=== PATIENT | female | born 1990 | race Caucasian/White ===

== ENCOUNTER → 2017-10-16 | Outpatient (CLI) | payer BC ==
[2017-10-16 11:38] LABS: FREE T4 0.9 ng/dL (0.76-1.46)
[2017-10-16 22:17] LABS: ESTRADIOL LEVEL 85.4 pg/mL (.); FSH 5.1 mIU/mL (.); PROGESTERONE 11.4 ng/mL (.); PROLACTIN 8.7 ng/mL (4.8-23.3)
[2017-10-21 07:57] LABS: ANTITHROMBIN III SEE SEPARATE REPORT
== END | disposition home or self-care (01) ==
LOC: LAB 10:42
PROVIDERS: ATTEND Obstetrics & Gynecology
DX: O26.20 Pregnancy care for patient with recurrent pregnancy loss, unspecified trimester (principal); N93.8 Other specified abnormal uterine and vaginal bleeding; Z3A.00 Weeks of gestation of pregnancy not specified
CPT/HCPCS: 82627; 82670; 83001; 84144; 84146; 84439; 84443; 86038; 86787

== ENCOUNTER → 2017-12-30 | Outpatient (CLI) | payer OTHER ==
[2017-12-30 17:02] LABS: ADD MAN DIFF? NO
[2017-12-30 17:09] LABS: BASO % 0 % (0-3); EOS % 1 % (0-3); HEMATOCRIT 40.3 % (36.0-47.0); HEMOGLOBIN 13.9 g/dL (12.0-15.5); LYMPH # 1.9 x10^3/uL (1.0-4.8); LYMPH % 21 % (24-48); MEAN CORPUSCULAR HEMOGLOBIN 32 pg (25-35); MEAN CORPUSCULAR HGB CONC 35 g/dL (31-37); MEAN CORPUSCULAR VOLUME 92 fL (79-100); MONO # 0.7 x10^3/uL (0.0-1.1); MONO % 8 % (0-9); NEUT # 6.1 x10^3uL (1.8-7.7); NEUT % 69 % (31-73); PLATELET COUNT 197 x10^3/uL (140-400); RED BLOOD COUNT 4.37 x10^6/uL (3.50-5.40); RED CELL DISTRIBUTION WIDTH 12.6 % (11.5-14.5); WHITE BLOOD COUNT 8.8 x10^3/uL (4.0-11.0)
[2017-12-31 01:14] LABS: HEP B SURFACE AG Negative (Negative)
[2017-12-31 06:19] LABS: RPR Non Reactive (Non Reactive)
[2017-12-31 07:32] LABS: HIV ANTIBODY Non Reactive (Non Reactive)
[2017-12-31 12:22] LABS: RUBELLA IGG ANTIBODY 2.88 index (Immune >0.99)
== END | disposition home or self-care (01) ==
LOC: LAB 16:42
DX: Z32.01 Encounter for pregnancy test, result positive (principal); R79.89 Other specified abnormal findings of blood chemistry
CPT/HCPCS: 36415; 85025; 86593; 86703; 86762; 86850; 86900; 86901; 87340

== ENCOUNTER → 2018-04-09 | Outpatient (CLI) | payer OTHER ==
[2018-04-09 09:47] LABS: ADD MAN DIFF? NO
[2018-04-09 09:51] LABS: BASO % 0 % (0-3); EOS % 0 % (0-3); HEMOGLOBIN 13.3 g/dL (12.0-15.5); LYMPH # 1.8 x10^3/uL (1.0-4.8); LYMPH % 17 % (24-48); MEAN CORPUSCULAR HEMOGLOBIN 33 pg (25-35); MEAN CORPUSCULAR HGB CONC 35 g/dL (31-37); MEAN CORPUSCULAR VOLUME 94 fL (79-100); MONO # 0.7 x10^3/uL (0.0-1.1); MONO % 7 % (0-9); NEUT # 7.9 x10^3uL (1.8-7.7); NEUT % 76 % (31-73); PLATELET COUNT 189 x10^3/uL (140-400); RED BLOOD COUNT 4.04 x10^6/uL (3.50-5.40); RED CELL DISTRIBUTION WIDTH 13.1 % (11.5-14.5); WHITE BLOOD COUNT 10.5 x10^3/uL (4.0-11.0)
[2018-04-09 10:09] LABS: GLUCOSE 73 mg/dL (70-99)
[2018-04-09 10:46] LABS: TYPE AND SCREEN 1 1
== END | disposition home or self-care (01) ==
LOC: LAB 09:24
DX: O09.92 Supervision of high risk pregnancy, unspecified, second trimester (principal); Z3A.24 24 weeks gestation of pregnancy
CPT/HCPCS: 36415; 82947; 82950; 85025; 86850; 86900; 86901; 96372; J2791

== ENCOUNTER 2018-07-24 19:08 | Inpatient (IN) | payer OTHER ==
[~2018-07-24] VITALS: Ht 161.3 cm; Wt 81.6 kg
[2018-07-24] MEDS ORDERED: OXYTOCIN 30 UNIT/500 ML PREMIX 500 ML IV PRN ×2 (19:15)
[2018-07-24] MEDS ORDERED: IBUPROFEN 800 MG TABLET. PO PRN (19:15)
[2018-07-24] MEDS ORDERED: MAG HYDROX/ALUMINUM HYD/SIMETH 30 ML ORAL.SUSP PO PRN (19:15)
[2018-07-24] MEDS ORDERED: fentaNYL PF VIAL 100 MCG/2 ML VIAL IV PRN (19:15)
[2018-07-24] MEDS ORDERED: ONDANSETRON PF 4 MG/2 ML VIAL. IV PRN (19:15)
[2018-07-24] MEDS ORDERED: DINOPROSTONE 10 MG SUPP.VAG VG ONE (19:15)
[2018-07-24] MEDS ORDERED: LIDOCAINE 1% PF 30 ML VIAL. INJ PRN (19:15)
[2018-07-24] MEDS ORDERED: TERBUTALINE 1 MG/ML VIAL. SQ PRN (19:15)
[2018-07-24] MEDS ORDERED: 0.9 % SODIUM CHLORIDE 10 ML DISP.SYRIN. IV PRN (19:15)
[2018-07-24] MEDS ORDERED: BUTORPHANOL 2 MG/ML VIAL. IV PRN (19:15)
[2018-07-24] MEDS ORDERED: ACETAMINOPHEN 325 MG TABLET. PO PRN (19:15)
[2018-07-24] MEDS: IV RINGERS,LACTATED 1000ML 1,000 ML IV SCH (20:37)
[2018-07-24 20:59] LABS: BASO % 0 % (0-3); EOS % 0 % (0-3); HEMATOCRIT 36.7 % (36.0-47.0); LYMPH # 1.5 x10^3/uL (1.0-4.8); LYMPH % 13 % (24-48); MEAN CORPUSCULAR HEMOGLOBIN 33 pg (25-35); MEAN CORPUSCULAR HGB CONC 35 g/dL (31-37); MEAN CORPUSCULAR VOLUME 94 fL (79-100); MONO # 0.8 x10^3/uL (0.0-1.1); MONO % 8 % (0-9); NEUT # 8.8 x10^3uL (1.8-7.7); NEUT % 79 % (31-73); PLATELET COUNT 159 x10^3/uL (140-400); RED BLOOD COUNT 3.91 x10^6/uL (3.50-5.40); RED CELL DISTRIBUTION WIDTH 12.8 % (11.5-14.5); WHITE BLOOD COUNT 11.1 x10^3/uL (4.0-11.0)
[2018-07-24 21:21] VITALS: BP 120/66
--- NOTE | 2018-07-25 08:28 | PDOC1 ---
OB - History Hx of Present Care: None Ultrasounds: Normal mid trimester US Obstetrical Complications: Other (oligohydramnios) Medical Complications: None Past Family/Social History * Past Medical, Surgical, Family and Obstetric Histories reviewed from chart. Rubella: Immune RPR/VDRL: Negative GBS Status: Negative HBsAG: Negative OB - Chief Complaint & HPI Date of Admission: Date of Admission: Jul 24, 2018 at 19:08 Chief Complaint/History : 1 Para: 0 EGA: 40 Reason for admission: induction of labor (oligohydramnios) Admission Nurse Assessment Rev: Yes OB - Admission Exam Physical Exam Vitals: VS - Last 72 Hours, by Label Date Time Temp Pulse Resp B/P (MAP) Pulse Ox O2 Delivery O2 Flow Rate FiO2 07/24/18 21:21 99.0 88 20 120/66 (84) 96 Room Air 99.0 HEENT: Normal Heart: Regular Rate Lungs: Clear Abdomen: Gravid, Non tender, Soft Extremities: Edema Reflexes: Normal Cervical Dilatation: 2cm Effacement: 75% Station: -3 Membranes: Intact Heart Rate: Normal Accelerations: Accelerations Present Decelerations: No decelerations Contractions on Admission: None Text A: 40 wks IUP Oligohydramnios P: Admit for cervidil IOL. FRANCY MAHONEY Jr, MD Jul 25, 2018 08:28
[2018-07-25] MEDS: IV RINGERS,LACTATED 1000ML 1,000 ML IV SCH ×3 (12:42→21:30)
[2018-07-25] MEDS ORDERED: L&D EPIDURAL SYRINGE 50 ML EP ONE (15:42)
[2018-07-25] MEDS ORDERED: ROPIVacaine 0.2% PF 10 ML VIAL. ONE ×2 (15:42→16:00)
[2018-07-25] MEDS ORDERED: ONDANSETRON PF 4 MG/2 ML VIAL. IV PRN ×3 (15:45→19:00)
[2018-07-25] MEDS ORDERED: ePHEDrine PF IN SALINE 50 MG/5 ML DISP.SYRIN IV PRN (15:45)
[2018-07-25] MEDS ORDERED: fentaNYL PF VIAL 100 MCG/2 ML VIAL EPI ONE (15:45)
[2018-07-25] MEDS ORDERED: NALOXONE 0.4 MG/ML VIAL. IV PRN ×2 (15:45→19:00)
[2018-07-25] MEDS ORDERED: L&D EPIDURAL SYRINGE 50 ML EP PRN (15:45)
[2018-07-25] MEDS ORDERED: CITRIC ACID/SODIUM CITRATE 30 ML SOLUTION. PO ONE (17:15)
[2018-07-25] MEDS ORDERED: MORPHINE PF 5 MG/10 ML VIAL. ONE (18:08)
[2018-07-25] MEDS ORDERED: CHLOROPROCAINE 3% MPF 20 ML VIAL. ONE (18:08)
--- NOTE | 2018-07-25 18:47 | PDOC4 ---
OB Operative Note Date: Jul 25, 2018 PRE OP DIAGNOSIS: NRFHT POST OP DIAGNOSIS: NRFHT OPERATION PERFORMED: [facility] Surgeon Dr. Ovalle Anesthesia: Regional (Epidural) Blood Loss 500 ml Specimen placenta and fetus OB Findings: Position (Vertex), Sex (Male), (), Weight (3365 Gram) Complications none Additional Remarks pt. FRANCY Carrillo Jr, MD Jul 25, 2018 18:47
[2018-07-25] MEDS ORDERED: diphenhydrAMINE 50 MG/ML VIAL IV PRN ×2 (19:00)
[2018-07-25] MEDS ORDERED: DOCUSATE SODIUM 100 MG CAPSULE. PO PRN (19:00)
[2018-07-25] MEDS ORDERED: ceFAZolin 2GM PREMIX 2 GM/50 ML BAG IV ONE (19:00)
[2018-07-25] MEDS ORDERED: OXYTOCIN 30 UNIT/500 ML PREMIX 500 ML IV PRN (19:00)
[2018-07-25] MEDS ORDERED: oxyCODONE/APAP 5/325 1 TAB TABLET PO PRN (19:00)
[2018-07-25] MEDS ORDERED: ATROPINE 0.5 MG/5 ML DISP.SYRINGE. IV PRN (19:00)
[2018-07-25] MEDS ORDERED: ZOLPIDEM 5 MG TABLET. PO PRN (19:00)
[2018-07-25] MEDS ORDERED: diphenhydrAMINE ORAL ELIXIR 12.5 MG/5 ML ML PO PRN (19:00)
[2018-07-25] MEDS ORDERED: NALBUPHINE 10 MG/ML AMPUL. IV PRN (19:00)
[2018-07-25] MEDS ORDERED: MEPERIDINE PF 25 MG/ML VIAL. IM PRN (19:00)
[2018-07-25] MEDS ORDERED: 0.9 % SODIUM CHLORIDE 10 ML DISP.SYRIN. IV PRN (19:00)
[2018-07-25] MEDS ORDERED: KETOROLAC 30 MG/ML VIAL. IV ONE (19:00)
[2018-07-25] MEDS ORDERED: PROCHLORPERAZINE 10 MG/2 ML VIAL. IV PRN (19:00)
[2018-07-25] MEDS ORDERED: SIMETHICONE 80 MG TAB.CHEW PO PRN (19:00)
[2018-07-25] MEDS ORDERED: KETOROLAC 30 MG/ML VIAL. IV PRN (19:00)
[2018-07-25] MEDS ORDERED: MAG HYDROX/ALUMINUM HYD/SIMETH 30 ML ORAL.SUSP PO PRN (19:00)
[2018-07-25] MEDS ORDERED: PHENYLEPHRINE in 0.9% NACL PF 1 MG/10 ML SYRINGE. IV ONE (19:04)
[2018-07-25] MEDS ORDERED: ONDANSETRON PF 4 MG/2 ML VIAL. ONE (19:13)
[2018-07-25] MEDS ORDERED: METOCLOPRAMIDE HCL 10 MG/2 ML VIAL. ONE (19:13)
[2018-07-25] MEDS ORDERED: FAMOTIDINE 20 MG/2 ML VIAL ONE (19:13)
--- NOTE | 2018-07-25 20:02 | OP ---
DATE OF SURGERY: PREOPERATIVE DIAGNOSES: 1. A 40 weeks' intrauterine . 2. Oligohydramnios. 3. intolerance to labor. POSTOPERATIVE DIAGNOSES: 1. A 40 weeks' intrauterine . 2. Oligohydramnios. 3. intolerance to labor. PROCEDURE: Primary low-transverse section. SURGEON: Francy Ovalle MD ANESTHESIA: Epidural. ESTIMATED BLOOD LOSS: 500 mL. COMPLICATIONS: None. FINDINGS: Viable male infant, Apgars 8, 8 and 9, weight 3365 grams. Three-vessel cord placenta delivered manually. SUMMARY: A 28-year-old 1 at 40 weeks was induced due to oligohydramnios. The patient dilated up to 4 cm and began having repetitive late decelerations and intolerance to labor. She was counseled on the need for emergent section and voiced clear understanding to proceed. DESCRIPTION OF PROCEDURE: The patient was taken to the surgery suite and placed in dorsal supine position. She was prepped with ChloraPrep and draped in sterile fashion. After adequate anesthesia, a Pfannenstiel skin incision was made with scalpel down to and through the fascia. The fascia was extended laterally using curved Turcios scissors. The superior edge of the fascia was grasped with two Flaco clamps and dissected free of the abdominal rectus muscles using blunt dissection along with Bovie cautery. The same process took place inferiorly. The abdominal rectus muscles were dissected bluntly at the midline. Peritoneum was grasped with 2 hemostats and entered sharply with Metzenbaum scissors. This incision was extended superiorly as well as inferiorly. Rajinder ring retractor was placed. Low-transverse hysterotomy incision made with scalpel down to the . The hysterotomy incision was extended laterally and superiorly digitally. With the aid of fundal pressure, the infant's head was delivered in a smooth atraumatic manner. With additional fundal pressure, the anterior shoulder was delivered followed by posterior shoulder and rest of the male was delivered. The infant was suctioned with bulb syringe orally and nasally, umbilical cord was clamped twice and cut. Viable male infant was handed to waiting nursing staff. Umbilical cord blood and arterial pH were obtained. Three-vessel cord placenta was delivered manually. The uterus was then exteriorized and cleared of clot and debris with moist lap. Hysterotomy incision was reapproximated using 1-0 Vicryl suture in running locked fashion. [id number] sutures were placed at the left apex of the hysterotomy incision for better hemostasis. The uterus palpated firm. Fallopian tubes, ovaries appeared normal bilaterally. The posterior cul-de-sac was cleared of clot and debris with moist lap. The uterus was then returned to the abdomen. The pericolic gutters were cleared of clot and debris with a moist lap. Hysterotomy incision was reviewed and was hemostatic. Interceed was placed over the hysterotomy incision in an inverted T fashion. The Rajinder ring retractor was removed. The peritoneum was reapproximated using 1-0 Vicryl suture in running fashion. Fascia was reapproximated using 0 Vicryl suture in running fashion. Skin was reapproximated using 4-0 Vicryl suture in subcuticular manner. The patient tolerated the procedure well and was taken to recovery room in stable condition. Sponge and needle count correct x 3. FRANCY OVALLE MD DR: BARAK/marco JOB#: [id number] / [id number]
[2018-07-25 21:15] VITALS: BP 95/56
[2018-07-25 21:45] VITALS: BP 88/44
[2018-07-25 23:03] VITALS: BP 88/42
[2018-07-26 03:00] VITALS: BP 97/53
[2018-07-26 04:40] LABS: BASO % 0 % (0-3); EOS % 0 % (0-3); HEMATOCRIT 31.8 % (36.0-47.0); HEMOGLOBIN 11.1 g/dL (12.0-15.5); LYMPH # 1.6 x10^3/uL (1.0-4.8); LYMPH % 10 % (24-48); MEAN CORPUSCULAR HEMOGLOBIN 33 pg (25-35); MEAN CORPUSCULAR HGB CONC 35 g/dL (31-37); MEAN CORPUSCULAR VOLUME 95 fL (79-100); MONO # 1.5 x10^3/uL (0.0-1.1); MONO % 10 % (0-9); NEUT # 12.4 x10^3uL (1.8-7.7); NEUT % 80 % (31-73); PLATELET COUNT 119 x10^3/uL (140-400); RED BLOOD COUNT 3.36 x10^6/uL (3.50-5.40); RED CELL DISTRIBUTION WIDTH 12.9 % (11.5-14.5); WHITE BLOOD COUNT 15.6 x10^3/uL (4.0-11.0)
[2018-07-26 06:42] VITALS: BP 90/54
[2018-07-26] MEDS ORDERED: INFLUENZA VAX SCREEN BY RX. MC PRN (07:00)
[2018-07-26] MEDS ORDERED: FERROUS SULFATE 325 MG TABLET. PO SCH (08:00)
--- NOTE | 2018-07-26 09:27 | PDOC ---
Provider Note Provider Note Doing well VSS Incision CDI FU in AM CBC - BMP 07/26/18 04:20 ROSHAN LANIER MD Jul 26, 2018 09:27
[2018-07-26 12:39] VITALS: BP 102/66
[2018-07-26] MEDS: IBUPROFEN 800 MG TABLET. PO PRN ×2 (14:25→22:21)
[2018-07-26 18:51] VITALS: BP 102/62
[2018-07-26 23:18] VITALS: BP 93/55
[2018-07-27] MEDS: IBUPROFEN 800 MG TABLET. PO PRN (05:28)
[2018-07-27 06:11] VITALS: BP 112/69
--- NOTE | 2018-07-27 12:46 | PDOC3 ---
OB DISCHARGE SUMMARY DATE OF ADMISSION: 07/25/18 DATE OF DISCHARGE: 07/27/18 REASON FOR ADMISSION: Induction of labor INTRAPARTUM PROCEDURES: : Low Cerv Trans PROBLEM LIST AT DISCHARGE Oligohydramnios and intolerance of labor DISCHARGE DIAGNOSIS: Failed/Induction ( intolerance to labor), Term Delivered DISCHARGE INFORMATION: Activity (ad amandeep), Diet (regular), Instructions (pelvic rest x 6 wks, no driving x 2 wks, no lifting > 20 lbs. x 4 wks) HOSPITAL COURSE Term gestation with oligohydramnios for induction. She had intolerance to labor and required emergency c/s without complications. FRANCY MAHONEY Jr, MD Jul 27, 2018 12:46
--- NOTE | 2018-07-27 12:47 | DISCH ---
DISCHARGE INSTRUCTIONS Condition on Discharge Condition on Discharge: Stable Activity After Discharge Activity Instructions for Disc: Activity as tolerated Lifting Instructions after Dis: No heavy lifting Driving Instructions after Dis: No driving for 2 weeks Diet after Discharge Diet after Discharge: Regular Contacting the DRCoty after DC Call your doctor for: Concerns you may have Follow-Up Follow up with: Dr. Ovalle in 2 wks. FRANCY OVALLE Jr, MD Jul 27, 2018 12:47
[2018-07-27] MEDS ORDERED: OXYC1TAB7 PO (12:49)
[2018-07-27] MEDS ORDERED: IBUP800T19 PO (12:49)
[2018-07-27] MEDS ORDERED: DOCU-109 PO (12:49)
[2018-07-27 13:58] VITALS: BP 111/73
== END 2018-07-27 15:18 | disposition home or self-care (01) | DRG 765 ==
LOC: 3 SO LND 19:08 → OBSVTOIN 19:20 → 3 NORTH 07-25 21:23
PROVIDERS: ADMIT Obstetrics & Gynecology; ATTEND Obstetrics & Gynecology
PROC: 10D00Z1 Extraction of Products of Conception, Low, Open Approach (ICD-10-PCS; principal; 2018-07-25)
PROC: 30233S1 Transfusion of Nonautologous Globulin into Peripheral Vein, Percutaneous Approach (ICD-10-PCS; 2018-07-25)
DX: O76 Abnormality in fetal heart rate and rhythm complicating labor and delivery (principal); O41.03X0 Oligohydramnios, third trimester, not applicable or unspecified; Z37.0 Single live birth; Z3A.40 40 weeks gestation of pregnancy
CPT/HCPCS: 36415; 85025; 85461; 86592; 86850; 86900; 86901; 90471; 90756; C1781; G0379; J0690; J0780; J1885; J2270; J2370; J2405; J2590; J2765; J2791; J2795; J3010; J7120; S0028; Q2035

== ENCOUNTER → 2018-09-24 | Outpatient (CLI) | payer OTHER ==
[~2018-09-24] MED LIST: DOCU-109 PO; IBUP800T19 PO; OXYC1TAB7 PO; PNV1TABL25 PO; PROCHLORPERAZINE 10 MG/2 ML VIAL. ONE
--- NOTE | 2018-09-24 16:20 | RAD ---
EXAM: Pelvic sonogram. HISTORY: Lost IUD. TECHNIQUE: Transabdominal and transvaginal sonographic imaging of the pelvis was performed. COMPARISON: 03/13/2018. FINDINGS: The uterus measures 14.2 x 5.4 x 4.6 cm. The endometrial stripe measures 11 mm. There is a small amount of fluid within the endometrial cavity. No intrauterine contraceptive device is seen sonographic. The ovaries are normal in size and demonstrate normal blood flow. There is a dominant left ovarian follicle/follicular cyst measuring 1.8 cm. This is superimposed on multiple small antral follicles. IMPRESSION: 1. No sonographic evidence of an IUD. 2. 1.8 cm dominant left ovarian follicle/follicular cyst. 3. Small amount of nonspecific fluid within the endometrial cavity. Electronically signed by: Brianna Welch MD (09/24/2018 4:16 PM) [id number]
--- NOTE | 2018-09-24 16:41 | RAD ---
EXAM: Supine AP view of the abdomen DATE: 09/24/2018 12:00 AM INDICATION: Evaluate for IUD migration. COMPARISON: No Prior FINDINGS: The IUD is seen within the central-right lower pelvis. This was not seen in the endometrial cavity on prior ultrasound and is therefore likely extrauterine. If accurate position of the IUD is required, this can be further evaluated with MRI or CT. No abnormal small or large bowel dilatation. Mild colonic stool content. No abnormal soft tissue mass effect. No suspicious calcifications are seen. Evaluation for free intraperitoneal gas is limited on this supine exam. IMPRESSION: The IUD is seen within the central-right lower pelvis. This was not seen in the endometrial cavity on prior ultrasound and is therefore likely extrauterine. If accurate position of the IUD is required, this can be further evaluated with MRI or CT. The radiographic findings described in the impression were discussed with Dr. Ovalle at 1636 PM, 09/24/2018. Electronically signed by: Pa Kilgore MD (09/24/2018 4:38 PM) [email or web address]
== END | disposition home or self-care (01) ==
LOC: US 14:48
PROVIDERS: ATTEND Obstetrics & Gynecology
DX: T83.89XA Other specified complication of genitourinary prosthetic devices, implants and grafts, initial encounter (principal)
CPT/HCPCS: 74018; 76830; 76856

== ENCOUNTER → 2018-09-25 | Day surgery (SDC) | payer OTHER ==
[~2018-09-25] MED LIST changes: +BUPIVAC MPF-EPI 0.5%-1:200000 30 ML VIAL. INJ ONE; +DEXAMETHASONE SOD PHOS 20 MG/5 ML VIAL. ONE; +GLYCOPYRROLATE 1 MG/5 ML VIAL. ONE; +HYDROmorphone 2 MG/ML VIAL IV PRN; +IV RINGERS,LACTATED 1000ML 1,000 ML IV SCH; +KETAMINE HCL IN STERILE WATER 50 MG/5 ML SYRINGE ONE; +KETOROLAC 30 MG/ML INJ FOR OR. INJ ONE; +LIDOCAINE 1% PF 2 ML VIAL. ID PRN; +LIDOCAINE 2% PF Vial for OR 5 ML VIAL. ONE; +MIDAZOLAM HCL/PF 2 MG/2 ML VIAL. ONE; +MORPHINE SULFATE 2 MG/ML VIAL. IV PRN; +NEOSTIGMINE METHYLSULFATE 5 MG/5 ML SYRINGE. ONE; +ONDANSETRON PF 4 MG/2 ML VIAL. IV PRN; +ONDANSETRON PF 4 MG/2 ML VIAL. ONE; +PROCHLORPERAZINE 10 MG/2 ML VIAL. IV PRN; -PROCHLORPERAZINE 10 MG/2 ML VIAL. ONE; +PROPOFOL 20 ML IV ONE; +ROCURONIUM 50 MG/5 ML VIAL. ONE; +SEVOFLURANE 61 TO 120 MINUTES. IH ONE; +SURGICEL HEMOSTAT 4X8 EACH. ONE; +fentaNYL PF VIAL 100 MCG/2 ML VIAL IV PRN; +fentaNYL PF VIAL 250 MCG/5 ML VIAL ONE; +oxyCODONE/APAP 5/325 1 TAB TABLET PO ONE
[2018-09-25 11:24] LABS: U PREG PATIENT NEGATIVE (NEG)
[2018-09-25 11:26] LABS: BASO % 0 % (0-3); EOS # 0.1 x10^3/uL (0.0-0.7); EOS % 1 % (0-3); HEMOGLOBIN 13.4 g/dL (12.0-15.5); LYMPH # 1.8 x10^3/uL (1.0-4.8); LYMPH % 20 % (24-48); MEAN CORPUSCULAR HEMOGLOBIN 32 pg (25-35); MEAN CORPUSCULAR HGB CONC 35 g/dL (31-37); MEAN CORPUSCULAR VOLUME 92 fL (79-100); MONO % 11 % (0-9); NEUT # 6.3 x10^3uL (1.8-7.7); NEUT % 68 % (31-73); PLATELET COUNT 234 x10^3/uL (140-400); RED BLOOD COUNT 4.25 x10^6/uL (3.50-5.40); RED CELL DISTRIBUTION WIDTH 13.3 % (11.5-14.5); WHITE BLOOD COUNT 9.2 x10^3/uL (4.0-11.0)
--- NOTE | 2018-09-25 13:08 | PDOC ---
BRIEF OPERATIVE NOTE Date: Sep 25, 2018 Pre-Op Diagnosis Misplaced IUD Post-Op Diagnosis Same Procedure Performed [facility] Retrieval IUD Surgeon Dr. Ovalle Anesthesia Type: General Blood Loss Less than 5 ml Specimens Obtained IUD Findings nml Left fallopian tube, nml ovaries elzbieta.; Right fallopian tube edematous; IUD imbedded in Right peritoneal side wall; no edivence bowel perforation, abscess or injury. Complications none Operative Note see dictation FRANCY OVALLE Jr, MD Sep 25, 2018 13:08
--- NOTE | 2018-09-25 13:08 | DISCH ---
DISCHARGE INSTRUCTIONS Condition on Discharge Condition on Discharge: Stable Activity After Discharge Activity Instructions for Disc: Activity as tolerated Lifting Instructions after Dis: No heavy lifting Driving Instructions after Dis: Do not drive today Diet after Discharge Diet after Discharge: Regular Contacting the DRCoty after DC Call your doctor for: Concerns you may have Follow-Up Follow up with: Dr. Ovalle in 2 wks FRANCY OVALLE Jr, MD Sep 25, 2018 13:08
--- NOTE | 2018-09-25 13:31 | OP ---
DATE OF SURGERY: PREOPERATIVE DIAGNOSIS: Misplaced intrauterine device. POSTOPERATIVE DIAGNOSIS: Misplaced intrauterine device. PROCEDURE: Laparoscopic retrieval of IUD. SURGEON: Mayank Ovalle MD ANESTHESIA: GETA. ESTIMATED BLOOD LOSS: Less than 5 mL. COMPLICATIONS: None. FINDINGS: Normal left fallopian tube, normal ovaries bilaterally. Right fallopian tube that was edematous. IUD was imbedded in the right peritoneal sidewall. No evidence of bowel perforation, abscess or injury. SUMMARY: A 28-year-old female who had IUD placement 5 weeks ago, who presented to clinic yesterday with some abdominal pain and cramping. The IUD strings were not visualized and pelvic sonogram was performed, followed by KUB, which did identify the IUD in the right lower pelvis. The patient was counseled on the need for laparoscopic retrieval of IUD with possible open laparotomy. She was counseled on risks, benefits and expectations and voiced clear understanding to proceed. DESCRIPTION OF PROCEDURE: The patient was taken to surgery suite and placed in dorsal lithotomy position. She was prepped with Betadine solution for vaginal prep and ChloraPrep for abdominal prep. After adequate anesthesia, bivalve speculum was placed vaginally. Anterior lip of the cervix grasped with single-tooth tenaculum. The uterine acorn manipulator was then placed. The bivalve speculum was removed. Attention was now placed on abdomen. Small transverse skin incision was made just below the umbilicus with the scalpel. The Veress needle was then placed through the infraumbilical incision site. The abdomen was allowed to insufflate up to 1-1/2 liters CO2 gas. The Veress needle was then removed, 5 mm trocar was placed. The scope was positioned. The uterus appeared normal. Left fallopian tube and ovary appeared normal. Right ovary appeared normal. There was edematous right fallopian tube with a second incision made in the left lower quadrant, 5 mm trocar was placed. With aid of graspers, the bowel was manipulated to discover the strings and then the IUD itself on the right pelvic sidewall that was right at the peritoneal level and this was partially imbedded into the peritoneal sidewall. This was removed meticulously and carefully. There was no evidence of abscess, bowel perforation. The IUD was then removed in its entirety. Suction irrigation was copiously utilized. The trocars were then removed under direct visualization. The abdomen was allowed to deflate as much as possible along with mechanical manipulation. The two skin incisions were reapproximated using 4-0 Vicryl suture in subcuticular manner. A 0.5% Marcaine with epinephrine was injected at each incision site. Uterine acorn manipulator and single-tooth tenaculum were removed. The patient tolerated the procedure well and was taken to recovery room in stable condition. Sponge and needle count correct x 3. MAYANK OVALLE MD DR: BARAK/marco JOB#: [id number] / [id number]
[2018-09-25 14:05] VITALS: BP 108/68
== END | disposition home or self-care (01) ==
LOC: SURG 10:03
PROVIDERS: ATTEND Obstetrics & Gynecology
DX: T83.32XA Displacement of intrauterine contraceptive device, initial encounter (principal); K21.9 Gastro-esophageal reflux disease without esophagitis; Z79.899 Other long term (current) drug therapy; Z79.1 Long term (current) use of non-steroidal anti-inflammatories (NSAID)
CPT/HCPCS: 36415; 58301; 81025; 85025; J0690; J1100; J1885; J2001; J2250; J2405; J2704; J2710; J3010; J3490; A7015; J7030